=== PATIENT | male | born 1990 | race Caucasian/White ===

== ENCOUNTER 2019-09-25 21:10 | Emergency (ER) | payer OTHER ==
[~2019-09-25] VITALS: Ht 175.3 cm; Wt 95.5 kg
[2019-09-25 21:42] VITALS: BP 113/83
== END 2019-09-25 23:06 | disposition home or self-care (01) ==
LOC: ER 21:12
DX: R21 Rash and other nonspecific skin eruption (principal); M79.671 Pain in right foot; M79.672 Pain in left foot; R42 Dizziness and giddiness; Z88.5 Allergy status to narcotic agent
CPT/HCPCS: 99282